=== PATIENT | male | born 1955 | race Caucasian/White ===

== ENCOUNTER 2017-06-26 22:30 | Emergency (ER) | payer MEDICAID ==
[2017-06-26 23:14] LABS: BASOPHILS # (AUTO) 0.1 10^3/uL (0.0-0.1); EOSINOPHILS # (AUTO) 0.3 10^3/uL (0.0-0.7); EOSINOPHILS % (AUTO) 4.3 %; HCT - HEMATOCRIT 44.2 % (42.0-52.0); HGB - HEMOGLOBIN 15.3 g/dL (14.0-18.0); LYMPHOCYTES # (AUTO) 2.2 10^3/uL (1.5-3.5); LYMPHOCYTES % (AUTO) 27.6 %; MEAN CORPUSCULAR HGB CONC 34.7 g/dL (32.0-36.0); MEAN CORPUSCULAR VOLUME 92.4 fL (80.0-94.0); MEAN PLATELET VOLUME 7.2 fL (7.4-11.4); MONOCYTES # (AUTO) 0.5 10^3/uL (0.0-1.0); MONOCYTES % (AUTO) 6.7 %; NEUTROPHILS # (AUTO) 4.8 10^3/uL (1.5-6.6); NEUTROPHILS % (AUTO) 60.4 %; RED BLOOD COUNT 4.79 10^6/uL (4.70-6.10); RED CELL DISTRIBUTION WIDTH 12.6 % (12.0-15.0)
--- NOTE | 2017-06-26 23:29 | ED Physician Documentation ---
PD HPI TRUNK INJURY - Stated complaint Stated Complaint: RIGHT SIDE PX - Chief complaint Chief Complaint: Resp - History obtained from History obtained from: Patient - History of Present Illness Location: Anterior chest, Right abdomen Type of injury: Blunt / blow Timing - onset: How many hours ago (2) Timing - details: Abrupt onset Quality: Pain, Aching, Throbbing Improved by: Immobilization Worsened by: Moving, Palpating Associated symtptoms: Swelling Contributing factors: No: Anticoagulated, Other injury Where injury occured: Work Similar symptoms before: Has not had sx before Recently seen: Not recently seen - Additional information Additional information: Patient is a 62 year old male with no significant past medical history who is presenting to the emergency department for abdominal trauma. Patient states that he was filing the teeth of an alpaca when he was kicked in the right upper quadrant under his ribs. patient states that his pain has been persistent and is worried of internal damage so he came in for evaluation. Review of Systems Constitutional: denies: Fever, Chills Eyes: denies: Decreased vision Ears: denies: Ear pain, Drainage/discharge Nose: denies: Rhinorrhea / runny nose, Congestion Cardiac: denies: Chest pain / pressure, Palpitations Respiratory: denies: Cough, Wheezing GI: reports: Abdominal Pain. denies: Nausea, Vomiting : denies: Dysuria, Hematuria Skin: denies: Laceration (s) Musculoskeletal: denies: Neck pain, Back pain, Extremity pain Neurologic: denies: Generalized weakness, Focal weakness, Numbness, Headache, Head injury Immunocompromised: denies: Immunocompromised PD PAST MEDICAL HISTORY - Past Medical History Past Medical History: Yes Other Past Medical History: Blind in right eye. - Past Surgical History Past Surgical History: No - Present Medications Home Medications: Ambulatory Orders Medication Instructions Recorded Confirmed No Known Home Medications [No 06/26/17 06/26/17 Known Home Medications] - Allergies Allergies/Adverse Reactions: Allergies Allergy/AdvReac Type Severity Reaction Status Date / Time No Known Drug Allergies Allergy Verified 06/26/17 22:37 - Social History Does the pt smoke?: No Smoking Status: Never smoker Does the pt drink ETOH?: No Does the pt have substance abuse?: No - Immunizations Immunizations are current?: Yes - POLST Patient has POLST: No PD ED PE NORMAL - Vitals Vital signs reviewed: Yes - General General: Alert and oriented X 3, No acute distress - HEENT HEENT: Atraumatic, PERRL - Neck Neck: Supple, no meningeal sign - Cardiac Cardiac: RRR, No murmur - Respiratory Respiratory: No respiratory distress, Clear bilaterally - Extremities Extremities: No deformity, Normal ROM s pain - Neuro Neuro: Alert and oriented X 3, No motor deficit, No sensory deficit, Normal speech - Psych Psych: Normal mood, Normal affect PD ED PE EXPANDED - Abdomen Abdomen: Tender to palpation, RUQ, Bruising (tenderness to ruq, inferior and behind the ribs, mild chest wall tenderness). No: Hepatomegaly, Splenomegaly Results - Vitals Vitals: Vital Signs - 24 hr 06/26/17 22:34 Temperature 36.8 C Heart Rate 52 L Respiratory 16 Rate Blood Pressure 148/84 H O2 Saturation 97 - Labs Labs: Laboratory Tests 06/26/17 06/26/17 23:04 23:04 WBC 8.0 RBC 4.79 Hgb 15.3 Hct 44.2 MCV 92.4 MCH 32.0 H MCHC 34.7 RDW 12.6 Plt Count 229 MPV 7.2 L Neut # 4.8 Lymph # 2.2 Miller # 0.5 Eos # 0.3 Baso # 0.1 Absolute Nucleated RBC 0.00 Nucleated RBCs 0.0 Sodium 139 Potassium 3.7 Chloride 103 Carbon Dioxide 29 Anion Gap 7.0 BUN 37 H Creatinine 1.1 Estimated GFR (MDRD) 68 L Glucose 98 Calcium 9.7 Total Bilirubin 0.8 AST 34 ALT 43 Alkaline Phosphatase 57 Total Protein 8.5 H Albumin 5.1 Globulin 3.4 Albumin/Globulin Ratio 1.5 Lipase 32 - Rads (name of study) ct abd/pelvis with contrast Radiology: Final report received (no post traumatic changes) PD MEDICAL DECISION MAKING - ED course Complexity details: reviewed old records, reviewed results, re-evaluated patient , considered differential, d/w patient ED course: Patient was seen and examined at bedside. Patient's vital signs were within normal limits but patient did have abdominal pain separate from the rib cage. labs were drawn and imaging was ordered. when patient's diagnostics came back the results were reviewed and within normal limits. patient required no further work up at this time and was stable for discharge with outpatient follow up. Departure - Departure Disposition: 01 Home, Self Care Clinical Impression: Abdominal wall contusion Condition: Good Instructions: ED Contusion Soft Tissue Follow-Up: Keegan Borjas MD [Primary Care Provider] - As Needed Comments: Your diagnostics today were within normal limits. there is no acute fracture or dislocation, or acute traumatic injury. You should ice the area and take motrin or tylenol as needed for pain. You should follow up with your pmd if your symptoms don't improve over the next few weeks. You can return to the emergency department at any time for new, worsening or uncontrollable symptoms.
[2017-06-26 23:30] LABS: ALBUMIN/GLOBULIN RATIO 1.5 (1.0-2.2); BILIRUBIN,TOTAL 0.8 mg/dL (0.2-1.0); CALCIUM 9.7 mg/dL (8.5-10.3); CREATININE 1.1 mg/dL (0.6-1.2); POTASSIUM 3.7 mmol/L (3.5-5.0); TOTAL PROTEIN 8.5 g/dL (6.7-8.2)
[2017-06-26] MEDS ORDERED: IOPAMIDOL-300 100 ML VIAL IVP ONE (23:54)
--- NOTE | 2017-06-27 00:27 | CT Preliminary Report ---
Exam: CT Abdomen/Pelvis W/ IMPRESSION: 1. No acute posttraumatic findings are seen. 2. Moderate stool in the colon. 3. Multiple nonspecific normal caliber fluid-filled small bowel loops. 4. Enlarged prostate. [facility] SITE ID: [id number]
--- NOTE | 2017-06-27 00:29 | CT Report ---
EXAM: CT ABDOMEN AND PELVIS EXAM DATE: 06/26/2017 11:54 PM. CLINICAL HISTORY: Pain after injury. COMPARISONS: None. TECHNIQUE: Routine helical CT imaging was performed through the abdomen and pelvis. IV contrast: Eryn onic. Enteric contrast: No. Reconstructions: Coronal and sagittal. In accordance with CT protocol optimization, one or more of the following dose reduction techniques w ere utilized for this exam: automated exposure control, adjustment of mA and/or KV based on patient s ize, or use of iterative reconstructive technique. FINDINGS: Lung Bases: Minimal bibasilar atelectasis. Liver: No focal lesion identified. Gallbladder/Bile Ducts: Unremarkable. Spleen: Normal. Pancreas: Normal. Adrenal Glands: Normal. Kidneys: Normal. No masses or hydronephrosis. Peritoneal Cavity/Bowel: No bowel obstruction seen. Multiple normal caliber fluid-filled small bowel loops. Moderate stool in the colon. No diverticulitis identified. No lymphadenopathy. No free air or free fluid. Appendix appears normal. Pelvic Organs: Enlarged prostate measuring 5.9 x 4.8 cm. Visualized pelvic organs are otherwise unrem arkable. Vasculature: Mild atherosclerosis. No aortic aneurysm. Bones: No significant abnormality. Other: None. IMPRESSION: 1. No acute posttraumatic findings are seen. 2. Moderate stool in the colon. 3. Multiple nonspecific normal caliber fluid-filled small bowel loops. 4. Enlarged prostate. [facility] Referring Provider Line: [phone] SITE ID: [id number]
[2017-06-27 00:39] VITALS: BP 136/89
== END 2017-06-27 00:46 | disposition home or self-care (01) ==
LOC: ED 22:30
DX: S30.1XXA Contusion of abdominal wall, initial encounter (principal); W55.82XA Struck by other mammals, initial encounter; H54.41 Blindness, right eye, normal vision left eye
CPT/HCPCS: 36415; 74177; 80053; 83690; 85025; 99283; 99284; Q9967

== ENCOUNTER 2019-12-25 09:15 | Outpatient (CLI) | payer MEDICARE ==
[2019-12-25 10:32] LABS: CHOL/HDL RATIO 4.3 (<5.0); CHOLESTEROL 247 mg/dL; HDL CHOLESTEROL 57 mg/dL; LDL CHOLESTEROL,CALCULATED 162 mg/dL; LDL/HDL RATIO 2.8 (<3.6); VLDL CHOLESTEROL 28 mg/dL
== END 2019-12-25 09:16 | disposition home or self-care (01) ==
LOC: LAB 09:15
PROVIDERS: ATTEND Nurse Practitioner Family
DX: E78.2 Mixed hyperlipidemia (principal)
CPT/HCPCS: 36415; 80061; 83721

== ENCOUNTER 2023-12-27 13:30 | Outpatient (CLI) | payer MEDICARE, OTHER ==
--- NOTE | 2023-12-27 16:21 | XRAY Report ---
PROCEDURE: Hand 3+V RT INDICATIONS: CONTUSION OF RIGHT HAND TECHNIQUE: 3 views of the hand(s) acquired. COMPARISON: None. FINDINGS: Bones: No fractures or dislocations. No suspicious bony lesions. Polyarticular degenerative changes of the right hand. There are juxta-articular lucencies involving t he distal interphalangeal joints of the second through fifth fingers as well as the proximal interpha langeal joints of the second, third, and fifth fingers. Soft tissues: No suspicious soft tissue calcifications or masses. IMPRESSION: No acute bony abnormality. 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 Findings may represent degenerative subchondral cysts althou gh osseous erosions not excluded. If there is persistent clinical concern for a radiographically occult fracture, recommend immobilizat ion and repeat imaging in 10 to 14 days. Reviewed by: Jose Alfredo Gonzalez MD on 12/27/2023 4:19 PM PST Approved by: Jose Alfredo Gonzalez MD on 12/27/2023 4:19 PM PST Station ID: [id number]
== END 2023-12-27 13:45 | disposition home or self-care (01) ==
LOC: DI.N 13:30
PROVIDERS: ATTEND Physician Assistant
DX: S60.221A Contusion of right hand, initial encounter (principal); M19.041 Primary osteoarthritis, right hand; R93.6 Abnormal findings on diagnostic imaging of limbs